=== PATIENT | female | born 1930 | race Caucasian/White ===

== ENCOUNTER 2016-11-09 16:02 | Emergency (ER) | payer MEDICARE ==
[2016-11-09 15:16] LABS: BASOPHILS 0.1 %; BASOPHILS ABSOLUTE 0.01 10/3/uL (0.0-0.16); EOSINOPHILS 2.1 %; EOSINOPHILS ABSOLUTE 0.15 10/3/uL (0.0-0.53); HEMATOCRIT 39.4 % (36.0-48.0); HEMOGLOBIN 13.6 g/dL (12.0-16.0); IMMATURE GRANULOCYTES 0.3 %; IMMATURE GRANULOCYTES ABSOLUTE 0.02 10/3/uL (0.0-0.11); LYMPHOCYTES ABSOLUTE 1.29 10/3/uL (0.67-4.30); MANUAL DIFF NO %; MEAN CORPUS HGB CONC 34.5 g/dL (32.0-36.0); MEAN CORPUSCULAR HEMOGLOB 32.9 pg (26.0-34.0); MEAN CORPUSCULAR VOLUME 95.2 fL (80-100); MEAN PLATELET VOLUME 10.9 fL (9.2-13.0); MONOCYTES 7.2 %; MONOCYTES ABSOLUTE 0.52 10/3/uL (0.21-1.20); NEUTROPHILS 72.3 %; NEUTROPHILS ABSOLUTE 5.19 10/3/uL (2.02-8.40); PLATELET COUNT 169 10/3/uL (150-400); RBC DISTRIBUTION WIDTH 12.3 % (12.0-16.0); RED CELL COUNT 4.14 10/6/uL (4.0-5.6); WHITE BLOOD CELLS 7.2 10/3/uL (4.5-10.5)
[2016-11-09 15:25] LABS: PARTIAL THROMBO TIME 26.8 SEC (22.5-37.2); PROTIME (NOT ORD) 12.8 SEC (12.0-14.5)
[2016-11-09 15:28] LABS: ASCORBIC ACID (UR NOT ORDER) NEG (NEG); BILIRUBIN, URINE NEGATIVE (NEG); KETONE, URINE NEGATIVE (NEG); LEUKOCYTE ESTERASE(NOT OR TRACE (NEG); NITRITE (URINE) NEG (NEG); WBC (NOT ORDERED) (RFLEX) 6 (0-5)
[2016-11-09 15:35] LABS: BUN (BLOOD UREA NITROGEN) 8 MG/DL (6-23); CALCIUM, SERUM 10.2 MG/DL (8.5-10.4); CHEST PAIN PROFILE TAT 0 Hrs 25 Mins; CHLORIDE, SERUM 101 MMOL/L (96-112); CREATININE 0.44 MG/DL (0.55-1.02); GFR AFRICAN AMERICAN 107 ML/MIN (>=60); GFR NON AFRICAN AMERICAN 92 ML/MIN (>=60); POTASSIUM, SERUM 3.5 MMOL/L (3.5-5.3); TROPONIN I <0.02 NG/ML (<0.05)
[2016-11-09 15:36] LABS: CO2 (CARBON DIOXIDE) 36 MMOL/L (24-34); GLUCOSE, SERUM 91 MG/DL (60-99); SODIUM, SERUM 141 MMOL/L (135-148)
[~2016-11-09 16:02] MED LIST: ACET500CAP PO; BENICAR20 PO; FOSAMAX70 MG PO; HARD NAILS OR; LEVOTHYROXIN50 MCG PO; LORTAB10 PO; NEUR100 PO; VITAMIN D31000 UNIT PO; ZIAC10 PO
[2016-11-09] MEDS ORDERED: ZIAC10 PO (18:34)
[2016-11-09] MEDS ORDERED: LEVOTHYROXIN50 MCG PO (18:34)
[2016-11-09] MEDS ORDERED: COZ50 PO (18:34)
[2016-11-09] MEDS ORDERED: PLAVIX PO (18:34)
[2016-11-09] MEDS ORDERED: NORCO1 TAB PO (18:35)
[2016-11-09] MEDS ORDERED: NEUR300 PO ×2 (18:35)
[2016-11-09] MEDS ORDERED: FIORINAL PO (18:36)
[2016-11-09] MEDS ORDERED: MINOCIN100 PO (18:37)
== END 2016-11-09 19:18 | disposition short-term general hospital (02) ==
LOC: ER 16:02
PROVIDERS: Nurse Practitioner
DX: S06.6X0A Traumatic subarachnoid hemorrhage without loss of consciousness, initial encounter (principal); S06.5X0A Traumatic subdural hemorrhage without loss of consciousness, initial encounter; I10 Essential (primary) hypertension; Z87.442 Personal history of urinary calculi; Z86.73 Personal history of transient ischemic attack (TIA), and cerebral infarction without residual deficits; Z79.899 Other long term (current) drug therapy; W19.XXXA Unspecified fall, initial encounter
CPT/HCPCS: 70450; 71010; 72125; 80048; 81001; 83735; 84484; 85025; 85610; 85730; 93005; 99291